=== PATIENT | female | born 1985 | race Caucasian/White ===

== ENCOUNTER 2023-12-27 21:14 | Inpatient (IN) | payer OTHER, MEDICAID ==
[~2023-12-27] VITALS: Ht 157.5 cm; Wt 76.2 kg
[2023-12-27 21:18] VITALS: BP_SYST 94; PULSE 93; RESP 17; TEMP 96.2; O2SAT 98
[2023-12-27 22:19] LABS: HEMATOCRIT 31.4 % (36-48); MEAN CORPUSCULAR HEMOGLOBIN 32 pg (27-31); MEAN CORPUSCULAR HGB CONC 35 % (32-36); MEAN CORPUSCULAR VOLUME 91 fL (79.0-98.0); PLATELET COUNT (AUTO) 336 K/uL (130-430); RED BLOOD CELL COUNT(AUTO) 3.46 MIL/uL (4.2-6.2); RED CELL DISTRIBUTION WIDTH 12.5 % (9.0-15.0); WHITE BLOOD COUNT (AUTO) 27.8 K/uL (4.8-10.8)
[2023-12-27] MEDS: NACL 0.9% 1,000 ML IV ONE (22:22)
[2023-12-27 22:33] LABS: CREATININE 1.21 mg/dL (0.55-1.30); POTASSIUM 3.9 mmol/L (3.5-5.1)
[2023-12-27] MEDS: KETOROLAC TROMETHAMINE 30 MG VIAL IVP ONE (22:36)
[2023-12-27] MEDS: MORPHINE 4 MG INJ. 4 MG/ML VIAL IVP ONE (23:42)
[2023-12-27 23:43] LABS: BAND % (MANUAL) 10 % (0-6); BASOPHILS % (MANUAL) 0 % (0-2); EOSINOPHILS % (MANUAL) 0 % (0-7); LYMPHOCYTES % (MANUAL) 4 % (20-46); MONOCYTES % (MANUAL) 3 % (0-11)
[2023-12-27 23:44] LABS: OVALOCYTES FEW; PLATELET ESTIMATE ADEQUATE (ADEQUATE)
[2023-12-28] VITALS (8 sets, daily range): BP systolic 104–132; PULSE 82–106; RESP 14–18; TEMP 98.2–98.6; O2SAT 97–100
[2023-12-28 00:52] LABS: BILIRUBIN,URINE NEGATIVE (NEGATIVE); BLOOD, URINE NEGATIVE (NEGATIVE); CLARITY/URINE SL CLOUDY (CLEAR); COLOR,URINE YELLOW (YELLOW); GLUCOSE,URINE TRACE (NEGATIVE); KETONES,URINE TRACE (NEGATIVE); LEUKOCYTE ESTERASE ,URINE NEGATIVE (NEGATIVE); NITRITE, URINE NEGATIVE (NEGATIVE); PROTEIN URINE TRACE (NEGATIVE); UROBILINOGEN,URINE 0.2 (0.2-1.0)
[2023-12-28 01:13] LABS: BACTERIA,URINE RARE /HPF (None Seen); RBC,URINE 0-3 /HPF (0-3); WBC,URINE 0-3 /HPF (0-3)
[2023-12-28] MEDS ORDERED: FLUO60TA PO (03:48)
[2023-12-28] MEDS ORDERED: BUPR300T55 PO (03:48)
[2023-12-28] MEDS ORDERED: QUET100T34 PO (03:48)
[2023-12-28] MEDS ORDERED: ONDA8TAB9 PO (03:48)
[2023-12-28] MEDS ORDERED: CEPH-568 PO (03:48)
[2023-12-28] MEDS ORDERED: TOPI100T39 PO (03:48)
[2023-12-28] MEDS ORDERED: HYDR-3921 PO (03:48)
[2023-12-28] MEDS: MORPHINE 4 MG INJ. 4 MG/ML VIAL IVP ONE (04:38)
[2023-12-28] MEDS: D5/0.45 NS 1,000 ML IV SCH (04:44)
[2023-12-28] MEDS ORDERED: LORazepam 2 MG/ML VIAL IVP PRN (12:00)
[2023-12-28] MEDS ORDERED: NALOXONE HCL 0.4 MG/ML AMP (NARCAN) IVP PRN ×4 (12:00→14:00)
[2023-12-28] MEDS ORDERED: HYDROcodone/ACETAMIN 5-325 MG TAB (NORCO/ VICODIN) PO PRN (12:00)
[2023-12-28] MEDS: MORPHINE 2 MG/ML INJ. SYRINGE IVP PRN (12:17)
[2023-12-28] MEDS: buPROPion HCL 150 MG XL TAB PO ONE (12:48)
[2023-12-28] MEDS: FLUoxetine HCL 20 MG CAPSULE (PROzac) PO ONE (12:49)
[2023-12-28] MEDS ORDERED: MORPHINE 2 MG/ML INJ. SYRINGE IVP PRN (14:00)
[2023-12-28 14:25] LABS: BASOPHILS % (AUTO) 0.2 % (0.0-2.0); EOSINOPHILS % (AUTO) 0.4 % (0.0-4.0); HEMATOCRIT 23.6 % (36-48); HEMOGLOBIN 8.3 g/dL (12.0-16.0); LYMPHOCYTES # (AUTO) 2.6 K/uL (1.0-5.5); LYMPHOCYTES % (AUTO) 22.4 % (20.5-51.5); MEAN CORPUSCULAR HEMOGLOBIN 32 pg (27-31); MEAN CORPUSCULAR HGB CONC 35 % (32-36); MEAN CORPUSCULAR VOLUME 92 fL (79.0-98.0); MONOCYTES % (AUTO) 8.3 % (1.7-9.3); NEUTROPHILS # (AUTO) 7.9 K/uL (1.8-7.7); NEUTROPHILS % (AUTO) 68.7 % (40.0-70.0); PLATELET COUNT (AUTO) 246 K/uL (130-430); RED BLOOD CELL COUNT(AUTO) 2.57 MIL/uL (4.2-6.2); RED CELL DISTRIBUTION WIDTH 12.6 % (9.0-15.0); WHITE BLOOD COUNT (AUTO) 11.5 K/uL (4.8-10.8)
[2023-12-28] MEDS: MORPHINE 2 MG/ML INJ. SYRINGE IVP ONE (14:26)
[2023-12-28] MEDS: ACETAMINOPHEN 325 MG TABLET PO PRN (14:38)
[2023-12-28] MEDS: cefTRIAXone 1 GM in D5W 50 ML IV SCH (15:18)
[2023-12-28] MEDS: HYDROcodone/ACETAMIN 10-325 MG TAB PO PRN (16:28)
[2023-12-28] MEDS: QUEtiapine FUMARATE 100 MG TABLET PO SCH (20:10)
[2023-12-28] MEDS: TOPIRAMATE 100 MG TABLET(Topamax) PO SCH (20:10)
[2023-12-28 20:15] LABS: BASOPHILS % (AUTO) 0.4 % (0.0-2.0); EOSINOPHILS % (AUTO) 0.4 % (0.0-4.0); HEMATOCRIT 25.4 % (36-48); HEMOGLOBIN 8.8 g/dL (12.0-16.0); LYMPHOCYTES # (AUTO) 3.5 K/uL (1.0-5.5); LYMPHOCYTES % (AUTO) 28.8 % (20.5-51.5); MEAN CORPUSCULAR HEMOGLOBIN 31 pg (27-31); MEAN CORPUSCULAR HGB CONC 35 % (32-36); MEAN CORPUSCULAR VOLUME 91 fL (79.0-98.0); MONOCYTES # (AUTO) 1.2 K/uL (0.0-1.0); MONOCYTES % (AUTO) 9.8 % (1.7-9.3); NEUTROPHILS # (AUTO) 7.3 K/uL (1.8-7.7); NEUTROPHILS % (AUTO) 60.6 % (40.0-70.0); PLATELET COUNT (AUTO) 247 K/uL (130-430); RED CELL DISTRIBUTION WIDTH 12.9 % (9.0-15.0); WHITE BLOOD COUNT (AUTO) 12.1 K/uL (4.8-10.8)
[2023-12-28 21:54] LABS: INR 0.9 (0.8-1.2); PROTHROMBIN TIME 9.9 SECS (9.5-12.5)
[2023-12-29] VITALS (7 sets, daily range): BP systolic 112–124; PULSE 81–99; RESP 16–18; TEMP 96.8–99.7; O2SAT 97–100
[2023-12-29] MEDS: MORPHINE 4 MG INJ. 4 MG/ML VIAL IVP PRN (05:56)
[2023-12-29 07:36] LABS: BASOPHILS % (AUTO) 0.4 % (0.0-2.0); EOSINOPHILS % (AUTO) 0.5 % (0.0-4.0); HEMATOCRIT 29.2 % (36-48); HEMOGLOBIN 10.2 g/dL (12.0-16.0); LYMPHOCYTES # (AUTO) 1.8 K/uL (1.0-5.5); LYMPHOCYTES % (AUTO) 19.9 % (20.5-51.5); MEAN CORPUSCULAR HEMOGLOBIN 31 pg (27-31); MEAN CORPUSCULAR HGB CONC 35 % (32-36); MEAN CORPUSCULAR VOLUME 90 fL (79.0-98.0); MONOCYTES # (AUTO) 0.9 K/uL (0.0-1.0); MONOCYTES % (AUTO) 9.6 % (1.7-9.3); NEUTROPHILS # (AUTO) 6.4 K/uL (1.8-7.7); NEUTROPHILS % (AUTO) 69.6 % (40.0-70.0); PLATELET COUNT (AUTO) 221 K/uL (130-430); RED BLOOD CELL COUNT(AUTO) 3.25 MIL/uL (4.2-6.2); RED CELL DISTRIBUTION WIDTH 13.6 % (9.0-15.0); WHITE BLOOD COUNT (AUTO) 9.2 K/uL (4.8-10.8)
[2023-12-29 08:05] LABS: ALBUMIN 2.9 g/dL (3.4-4.8); CALCIUM 7.7 mg/dL (8.4-11.0); CREATININE 0.74 mg/dL (0.55-1.30); POTASSIUM 3.1 mmol/L (3.5-5.1); TOTAL BILIRUBIN 0.5 mg/dL (0.0-1.0); TOTAL PROTEIN, SERUM 5.9 g/dL (6.4-8.3)
[2023-12-29] MEDS: buPROPion HCL 150 MG XL TAB PO SCH (08:34)
[2023-12-29] MEDS: FLUoxetine HCL 20 MG CAPSULE (PROzac) PO SCH (08:34)
[2023-12-29] MEDS: POTASSIUM CHLORIDE 20 MEQ TABLET.ER PO ONE (11:21)
[2023-12-29 14:01] LABS: HEMATOCRIT 29.2 % (36-48)
[2023-12-29] MEDS: ONDANSETRON HCL 4 MG/2 ML VIAL IVP PRN (20:43)
[2023-12-30] VITALS: BP_SYST 118; PULSE 83; RESP 18; TEMP 98; O2SAT 98
[2023-12-30] MEDS: SIMETHICONE 80 MG TAB.CHEW PO ONE (01:18)
[2023-12-30] MEDS: SIMETHICONE 80 MG TAB.CHEW PO SCH (06:33)
[2023-12-30 07:14] LABS: BASOPHILS % (AUTO) 0.2 % (0.0-2.0); EOSINOPHILS % (AUTO) 0.3 % (0.0-4.0); HEMATOCRIT 29.4 % (36-48); HEMOGLOBIN 10.2 g/dL (12.0-16.0); LYMPHOCYTES # (AUTO) 1.7 K/uL (1.0-5.5); LYMPHOCYTES % (AUTO) 16.2 % (20.5-51.5); MEAN CORPUSCULAR HEMOGLOBIN 32 pg (27-31); MEAN CORPUSCULAR HGB CONC 35 % (32-36); MEAN CORPUSCULAR VOLUME 91 fL (79.0-98.0); MONOCYTES # (AUTO) 0.8 K/uL (0.0-1.0); MONOCYTES % (AUTO) 7.6 % (1.7-9.3); NEUTROPHILS # (AUTO) 7.9 K/uL (1.8-7.7); NEUTROPHILS % (AUTO) 75.7 % (40.0-70.0); PLATELET COUNT (AUTO) 263 K/uL (130-430); RED BLOOD CELL COUNT(AUTO) 3.24 MIL/uL (4.2-6.2); RED CELL DISTRIBUTION WIDTH 13.7 % (9.0-15.0); WHITE BLOOD COUNT (AUTO) 10.5 K/uL (4.8-10.8)
[2023-12-30 07:25] LABS: CALCIUM 8.3 mg/dL (8.4-11.0); CREATININE 0.69 mg/dL (0.55-1.30); POTASSIUM 3.3 mmol/L (3.5-5.1)
[2023-12-30 07:44] LABS: ERYTHROCYTE SEDIMENTATION RATE 28 MM/HR (0-20)
[2023-12-30 08:00] VITALS: BP_SYST 114; PULSE 84; RESP 15; TEMP 98.2; O2SAT 98
[2023-12-30] MEDS ORDERED: SIME80TA15 PO (10:19)
[2023-12-30] MEDS: POTASSIUM CHLORIDE 20 MEQ TABLET.ER PO ONE (10:30)
[2023-12-30 10:50] VITALS: O2SAT 98
[2023-12-30 11:12] VITALS: BP_SYST 117; PULSE 88; RESP 15; TEMP 98.4; O2SAT 95
[2023-12-30] MEDS: CALCIUM GLUC 2 GM/100ML-NACL 100 ML IV ONE (12:31)
[2023-12-30] MEDS: NORMAL SALINE 5 ML DISP.SYRIN IVF SCH (15:03)
[2023-12-30 15:05] VITALS: BP_SYST 139; PULSE 92; RESP 16; TEMP 97.4; O2SAT 97
== END 2023-12-30 17:35 | disposition home or self-care (01) | DRG 920 ==
LOC: SED 21:14 → SMU 12-28 03:24 → SIC 12-28 13:50 → STU 12-29 01:04
PROVIDERS: ADMIT Preventive Medicine Preventive Medicine/Occupational Environmental Medicine; ATTEND Preventive Medicine Preventive Medicine/Occupational Environmental Medicine
PROC: 30233N1 Transfusion of Nonautologous Red Blood Cells into Peripheral Vein, Percutaneous Approach (ICD-10-PCS; principal; 2023-12-28)
DX: K91.840 Postprocedural hemorrhage of a digestive system organ or structure following a digestive system procedure (principal); E44.0 Moderate protein-calorie malnutrition; E87.20 Acidosis, unspecified; R65.10 Systemic inflammatory response syndrome (SIRS) of non-infectious origin without acute organ dysfunction; D64.9 Anemia, unspecified; E86.0 Dehydration; Z20.822 Contact with and (suspected) exposure to COVID-19; E83.51 Hypocalcemia; E66.9 Obesity, unspecified; E87.6 Hypokalemia; F32.A Depression, unspecified; E88.09 Other disorders of plasma-protein metabolism, not elsewhere classified; Y83.8 Other surgical procedures as the cause of abnormal reaction of the patient, or of later complication, without mention of misadventure at the time of the procedure; Z68.30 Body mass index [BMI] 30.0-30.9, adult; Z79.899 Other long term (current) drug therapy
CPT/HCPCS: 36415; 71045; 80048; 80053; 81000; 81001; 81015; 82009; 83605; 85007; 85018; 85025; 85027; 85610; 85651; 85730; 86886; 86900; 86901; 86920; 87040; 87081; 99285; G0378; J0696; J1885; J2270; J2405; J7030; J7060; P9021